=== PATIENT | male | born 2005 | race Caucasian/White ===

== ENCOUNTER 2025-01-26 10:29 | Outpatient (RCR) | payer BC, SELFPAY | END 2025-01-26 23:59 | disposition home or self-care (01) | LOC: RPT 10:29 | PROVIDERS: ATTENDING PHYSICIAN Internal Medicine Gastroenterology; FAMILY PHYSICIAN Pediatrics | DX: K59.4 Anal spasm (principal); Z73.6 Limitation of activities due to disability; K59.00 Constipation, unspecified | CPT/HCPCS: 97110; 97161; 97530 ==

== ENCOUNTER 2025-08-02 06:25 | Day surgery (SDC) | payer BC, SELFPAY | END 2025-08-02 09:25 | disposition home or self-care (01) | LOC: GI 06:25 | PROVIDERS: ATTENDING PHYSICIAN Internal Medicine Gastroenterology; FAMILY PHYSICIAN Pediatrics | DX: K62.5 Hemorrhage of anus and rectum (principal); K59.00 Constipation, unspecified; R63.4 Abnormal weight loss; Z83.719 Family history of colon polyps, unspecified; R11.0 Nausea; Z53.8 Procedure and treatment not carried out for other reasons | CPT/HCPCS: 43235; 45378; G0378 ==

== ENCOUNTER → 2025-08-23 08:00 | Outpatient (REF) | payer BC, SELFPAY ==
[2025-08-23 10:38] LABS: ALT (SGPT) 23 U/L (0-50); AST (SGOT) 30 U/L (17-59); Albumin 4.4 g/dl (3.5-5.0); Alkaline Phosphatase 72 U/L (38-126); Blood Urea Nitrogen 7 mg/dl (9-20); Calcium 9.0 mg/dl (8.4-10.2); Carbon Dioxide 32 mmol/L (22-30); Chloride 103 mmol/L (98-107); Glucose 89 mg/dl (70-99); Potassium 3.7 mmol/L (3.5-5.1); Sodium 141 mmol/L (135-145); Total Protein 7.1 g/dl (6.3-8.2); eGFR > 60.00
[2025-08-23 11:01] LABS: TSH 1.61 uIU/ml (0.47-4.68)
[2025-08-23 11:09] LABS: Hematocrit 45.2 % (39.0-52.0); Hemoglobin 15.5 g/dL (13.0-18.0); Mean Corp Hgb Conc. 34.3 g/dL (33.0-37.0); Mean Corpuscular Volume 83.9 fL (80.0-94.0); Platelet Count 211 10^3/uL (130-400); Red Cell Dist. Width 12.0 % (11.5-14.5)
[2025-08-23 12:30] LABS: Nucleated Red Blood Cells % 0 % (-)
== END ==
LOC: HWRCS 08:00
PROVIDERS: ATTENDING PHYSICIAN Internal Medicine Cardiovascular Disease; FAMILY PHYSICIAN Pediatrics
DX: R00.2 Palpitations (principal)
CPT/HCPCS: 36415; 80053; 84439; 84443; 85025; 93306

== ENCOUNTER → 2025-09-06 07:37 | Outpatient (REF) | payer BC, SELFPAY | LOC: HWRAD 07:37 | PROVIDERS: ATTENDING PHYSICIAN Student in an Organized Health Care Education/Training Program | DX: R59.1 Generalized enlarged lymph nodes (principal) | CPT/HCPCS: 76536 ==